=== PATIENT | female | born 1975 | race American Indian/Alaskan Native ===

== ENCOUNTER 2019-10-13 08:54 | Emergency (ER) | payer MEDICARE ==
[2019-10-13 09:08] VITALS: BP 180/111
[2019-10-13 10:39] LABS: Hematocrit 39.2 % (30.3-42.9); Mean Corpuscular HGB Conc 33 % (30-34); Mean Corpuscular Volume 83 fl (79-97); Platelet Count 282 K/mm3 (140-440); Red Blood Count 4.73 M/mm3 (3.65-5.03); Red Cell Distribution Width 15.9 % (13.2-15.2)
[2019-10-13 11:01] LABS: BUN/Creatinine Ratio 7; Blood Urea Nitrogen 6 mg/dL (7-17); Calcium 9.4 mg/dL (8.4-10.2); Hemolysis Index 31
[2019-10-14] MEDS ORDERED: ACETAMINOPHEN 325 MG TAB PO ONE (02:06)
== END 2019-10-13 12:48 | disposition left against medical advice (07) ==
LOC: ED 08:54
DX: R09.81 Nasal congestion (principal); Z53.21 Procedure and treatment not carried out due to patient leaving prior to being seen by health care provider
CPT/HCPCS: 36415; 80048; 85027